=== PATIENT | female | born 1950 | race Caucasian/White ===

== ENCOUNTER 2017-07-15 22:23 | Inpatient (IN) | payer MEDICARE, BC ==
--- NOTE | 2017-07-15 23:21 | RAD ---
PORTABLE CHEST: 07/15/17 HISTORY: Hypertension. Lethargy. No comparison studies available. There is a large right pleural effusion. Possible small left effusion with basilar atelectasis and/or streaky infiltrate. A Mediport type catheter is in place with tip overlying the upper SVC. Mild card iomegaly. Thoracic scoliosis. Clips within the left axilla suggests left breast surgery. IMPRESSION: 1. Large right pleural effusion. 2. Small left effusion and streaky atelectasis and/or infiltrate in the left lung base. POS: [facility]
[2017-07-16 00:25] LABS: Clarity Clear (Clear)
[2017-07-16 00:26] LABS: ALT (SGPT) 30 U/L (8-55); AST (SGOT) 156 U/L (5-34); Albumin 1.8 g/dL (3.4-4.8); Alkaline Phosphatase 1050 U/L (40-150); Anion Gap 21 mmol/L (10-20); BUN (Urea Nitrogen) 38 mg/dL (9.8-20.1); Bilirubin, Total 13.2 mg/dL (0.2-1.2); Calc. Creatinine Clearance 0 mL/min (70-130); Carbon Dioxide 15 mmol/L (23-31); Chloride 100 mmol/L (98-107); Estimated GFR-MDRD 21; Globulin 2.1 g/dL (2.4-3.5); Glucose 86 mg/dL (80-115); Potassium 3.2 mmol/L (3.5-5.1); Protein, Total 3.9 g/dL (6.0-8.3); Sodium 133 mmol/L (136-145)
[2017-07-16 00:26] LABS: Specific Gravity, Urine 1.021 (1.002-1.036)
[2017-07-16 00:27] LABS: Bilirubin Unable to Interpret (Negative); Blood, Urine Unable to Interpret (Negative); Glucose, Urine (Dipstick) Unable to Interpret mg/dL (Negative); Leukocyte Unable to Interpret (Negative); Nitrite Unable to Interpret (Negative); Protein, Urine (Dipstick) Unable to Interpret mg/dL (Neg-Trace); Urobilinogen UNABLE TO INTERPRET mg/dL (0.2-1.0)
[2017-07-16 00:28] LABS: pH, Urine 5.1 (5.0-9.0)
[2017-07-16 00:37] LABS: RBC/HPF 0-3 HPF (0-3)
[2017-07-16 00:39] LABS: Bacteria/HPF Rare-Few HPF (None Seen)
[2017-07-16 00:40] LABS: Crystals/HPF 2+ AMORPH URATES HPF (Negative); Hyaline Casts/LPF 0-3 HYALINE CAST LPF (0-3 Hyaline); Manual Microscopic Reviewed? No Path Casts Seen
[2017-07-16 00:59] LABS: Band 6 % (5-11); Burr Cells MODERATE= 6-15 cells (100X) (0-1/hpf); Hemoglobin 12.3 g/dL (12.0-16.0); Lymphocytes 2 % (21-51); MDiff Complete? YES; Mean Corpuscular HGB CONC 32.5 g/dL (32.0-36.0); Mean Corpuscular Hemoglobin 33.9 pg (27.0-31.0); Mean Platelet Volume 11.8 fL (7.4-10.4); Monocytes 6 % (0-10); Neutrophil 86 % (42-75); PLT Morphology Comment Appears Decreased; Platelet Count 51 thou/uL (130-400); RBC Distribution Width 22.3 % (11.5-14.5); Red Blood Cell (RBC) Count 3.63 mill/uL (4.20-5.40); White Blood Cell (WBC) Count 21.5 thou/uL (4.8-10.8)
[2017-07-16 01:38] LABS: Phosphorus 6.3 mg/dL (2.3-4.7)
[2017-07-16] MEDS ORDERED: Meropenem 1 GM in Sterile Water 20 ML SLOW IVP SCH (02:00)
[2017-07-16] MEDS ORDERED: Meropenem 1 GM in Sodium Chloride 0.9% 100 ML IVPB SCH (02:00)
[2017-07-16] MEDS ORDERED: Sodium Chloride 0.9% 1,000 ML IV SCH ×2 (03:40→16:45)
[2017-07-16] MEDS ORDERED: Magnesium 2 GM/NS 0.9% 100 ML 2 GM in Premix Bag 1 BAG IVPB SCH (04:00)
[2017-07-16] MEDS ORDERED: Albumin 25% 25 GM/100 ML BOT IVPB SCH (04:00)
[2017-07-16 04:33] LABS: Anion Gap 19 mmol/L (10-20); BUN (Urea Nitrogen) 40 mg/dL (9.8-20.1); Calc. Creatinine Clearance 0 mL/min (70-130); Calcium 6.8 mg/dL (7.8-10.44); Carbon Dioxide 19 mmol/L (23-31); Chloride 98 mmol/L (98-107); Estimated GFR-MDRD 18; Glucose 88 mg/dL (80-115); Potassium 3.5 mmol/L (3.5-5.1); Sodium 132 mmol/L (136-145)
[2017-07-16 04:36] LABS: Lactic Acid 5.2 mmol/L (0.5-2.2)
[2017-07-16] MEDS ORDERED: Calcium Carbonate 500 MG ChewTAB PO PRN (04:40)
[2017-07-16] MEDS ORDERED: Ondansetron HCl/PF 4 MG/2 ML Vial IVP PRN (04:40)
[2017-07-16] MEDS ORDERED: Ondansetron ODT 4 MG TAB PO PRN (04:40)
[2017-07-16] MEDS ORDERED: Senokot 8.6 MG TAB PO PRN (04:40)
[2017-07-16] MEDS ORDERED: Polyethylene Glycol 3350 17 GM Packet PO PRN (04:42)
[2017-07-16] MEDS ORDERED: Eucerin (Mineral Oil/Petrolatum,White) 30 gm Jar TOP PRN (04:42)
[2017-07-16 05:09] VITALS: BMI 27.3
[2017-07-16] MEDS: Sodium Chloride 0.9% 1,000 ML IV SCH ×3 (05:30→20:45)
--- NOTE | 2017-07-16 06:12 | HP ---
DATE OF ADMISSION: 07/16/2017 PRIMARY CARE PHYSICIAN: None. PRIMARY ONCOLOGIST: Dr. Kojo Fabian at [facility]. CHIEF COMPLAINT: Generalized weakness with low blood pressure. HISTORY OF PRESENT ILLNESS: Patient is a 66-year-old female with metastatic ovarian cancer who prese nted to the emergency room with above complaints. The patient completed Adriamycin recently. She de veloped anemia and thrombocytopenia requiring transfusion of both platelets and blood. She was hospi talized at [facility] 2-1/2 weeks ago. Two days ago, patient was started on olaparib (Lynparza). Rec ently, the patient has been not eating well. She is getting more weaker. The family also noticed he r blood pressure in 60s along with lethargy for which she was brought to the emergency room. There w as no fever or chills reported. She has some cough along with shortness of breath. The cough was pr oductive of mild clear whitish phlegm. There was no nausea, vomiting, diarrhea, constipation reporte d. She also recently had hemorrhagic cystitis that has resolved. PAST MEDICAL HISTORY: 1. Ovarian cancer with metastasis to the liver. 2. Crohn's disease. 3. Ileostomy. PAST SURGICAL HISTORY: 1. Mastectomy with lymph node removal on the left. 2. Hysterectomy. 3. Oophorectomy. 4. Ovarian mass removal. ALLERGIES: The patient is allergic to KEFLEX and IODINE. CURRENT HOME MEDICATIONS: [place] as needed, Imodium as needed, Lynparza 200 mg b.i.d. SOCIAL HISTORY: Patient currently lives at home with her family. Denies any current use of alcohol, tobacco or drug use. She is full code, makes her own decisions with the help of her family. FAMILY HISTORY: Negative for premature coronary artery disease. REVIEW OF SYSTEMS: The following complete review of systems was negative, unless otherwise mentioned in the HPI or below: Constitutional: Weight loss or gain, ability to conduct usual activities. Skin: Rash, itching. Eyes: Double vision, pain. ENT/Mouth: Nose bleeding, neck stiffness, pain, tenderness. Cardiovascular: Palpitations, dyspnea on exertion, orthopnea. Respiratory: Shortness of breath, wheezing, cough, hemoptysis, fever or night sweats. Gastrointestinal: Poor appetite, abdominal pain, heartburn, nausea, vomiting, constipation, or diarr hea. Genitourinary: Urgency, frequency, dysuria, nocturia. Musculoskeletal: Pain, swelling. Neurologic/Psychiatric: Anxiety, depression. Allergy/Immunologic: Skin rash, bleeding tendency. PHYSICAL EXAMINATION: VITAL SIGNS: In the emergency room showed temperature 97.4, respiration of 18, pulse rate of 99, blo od pressure of 61/40 in the emergency room. GENERAL: A 66-year-old female in no apparent distress, ill appearing, feels generally weak and somno lent. HEENT: Head is atraumatic, normocephalic. Sclerae are anicteric. Dry mucous membranes. No oral le dm. NECK: Supple, no JVD, no carotid bruit. LUNGS: Showed diminished air entry at the right mid and right lower half of the lung with scattered rales. No wheezing or rhonchi noted. LUNGS: Symmetrical. HEART: S1, S2 present. Regular rate and rhythm. No rubs or gallops appreciated. ABDOMEN: Soft, nontender, bowel sounds present, ileostomy noted. EXTREMITIES: 3+ edema in bilateral lower extremities, which is chronic per daughter at the bedside. SKIN: Warm and dry. LYMPH NODES: No palpable lymph nodes in the neck. PERIPHERAL VASCULAR: Radial pulses palpable bilaterally. MUSCULOSKELETAL: No joint swelling or tenderness. NEUROLOGIC: Grossly nonfocal, moves all four extremities. PSYCHIATRY: Alert, awake, oriented x3. LABORATORY DATA AND X-RAY FINDINGS: CBC showed WBC of 21.5, hemoglobin 12.3, hematocrit 37.9, platel et of 51 with 86% neutrophils. Chemistries showed sodium 133, potassium 3.2, chloride 100, bicarbona te 15, anion gap 21, BUN 38, creatinine 2.34, calcium of 6.0 with albumin of 1.8, total protein 3.9, total bilirubin 13.2. Cortisol level was 14.9. Lipase was normal. Magnesium 1.0. Urinalysis showe d 4-6 WBC with squamous epithelial cells. Influenza testing was negative. Chest x-ray by my review showed large right-sided pleural effusion with small left effusion with questionable infiltrate at th e left lung base. Telemetry monitoring by my review showed sinus rhythm. IMPRESSION: 1. Sepsis with acute organ dysfunction, suspected secondary to pneumonia, questionable pneumococcal. 2. Hypotension, multifactorial. 3. Severe protein calorie malnutrition. 4. Electrolyte abnormalities. Patient has hyponatremia, hypokalemia and hypomagnesemia. 5. Abnormal liver function tests secondary to liver metastasis. 6. Acute kidney injury. Baseline creatinine is unavailable. 7. Metabolic acidosis/lactic acidosis. 8. History of Crohn's disease. PLAN: The patient will be monitored in the IMCU. We will continue IV fluids with empiric antibiotic s and albumin. We will repeat lactic acid in a.m. We will continue vancomycin and meropenem. Blood cultures have been sent. Vital signs q.4 hours. We will consult Oncology and Pulmonology. Plan of care was discussed with the patient and the daughter at the bedside. They stated alhajii andrew.
[2017-07-16 07:16] VITALS: BP 51/29
[2017-07-16] MEDS ORDERED: Norepinephrine 8 MG/0.9% NS 250 ML ONE (08:20)
[2017-07-16] MEDS ORDERED: Docusate 100 MG CAP PO SCH (09:00)
--- NOTE | 2017-07-16 09:09 | CON ---
DATE OF CONSULTATION: 07/16/2017 CONSULTING PHYSICIAN: Declan Vargas M.D. REASON FOR CONSULTATION: Low blood pressure and abnormal chest x-ray. HISTORY OF PRESENT ILLNESS: History is obtained by speaking with the patient, her daughter, and by reviewing the chart records. I was not informed by the Hospitalist group about this consultation. The patient presented last night with a low blood pressure, which has been as low as 59/31. To the point when I saw her, this had not been addressed by any other means except fluid resuscitation. The patient says her blood pressures normally in the systolic 80s to 90s. She has also been experiencing shortness of breath over the last 3 weeks to the point where she has not been able to lay flat. An x-ray obtained in the emergency room showed a massive right-sided pleural effusion. To the family's knowledge, this has not been a problem in the past. She has metastatic ovarian cancer, which is being treated with salvage chemotherapy. Complications of the cancer include liver metastasis, hemorrhagic cystitis and chronic thrombocytopenia. PAST MEDICAL HISTORY: 1. Ovarian cancer with metastasis to the liver. 2. Crohn's disease, requiring colostomy in the past. 3. Mastectomy with lymph node removal on the left side. 4. Hysterectomy. 5. Oophorectomy. 6. Ovarian mass removal. ALLERGIES: KEFLEX and IODINE. MEDICATIONS PRIOR TO ADMISSION: [place], Imodium, Lynparza 200 mg b.i.d. SOCIAL HISTORY: She is a nonsmoker, does not consume alcohol, does not use illicit drugs. She lives at home with her family. She seeks all of her mental care in [place]. FAMILY MEDICAL HISTORY: Negative for cardiopulmonary disease. REVIEW OF SYSTEMS: She has lost considerable amount of weight. She has orthopnea. She has paroxysmal nocturnal dyspnea. She is generally able to do most of her activities of daily living. A 12-point review of systems is otherwise negative. PHYSICAL EXAMINATION: VITAL SIGNS: Temperature 97.8, pulse 92, blood pressure 59/31, O2 sat 96%, respiratory rate 21. GENERAL: The patient is alert, talkative, does not appear to be in any profound distress. HEENT: Pupils are reactive. Sclerae are anicteric. Oropharynx is clear. She has alopecia. NECK: She has a tunneled catheter coming up into her IJ. She has no thyromegaly, no JVD, no palpable adenopathy. LUNGS: She has grossly diminished breath sounds in the right base with dullness to percussion. She has clear breath sounds on the left. CARDIAC: S1, S2 regular, without murmur. ABDOMEN: Mildly distended, but no obvious ascites is noted. She has no ecchymoses. She has a colostomy present in the left upper quadrant. EXTREMITIES: Show pitting edema from the thighs downward bilaterally. She has very weak distal pulses over her feet. NEUROLOGIC: Grossly intact throughout. SKIN: Shows no obvious rashes, bruising or jaundice. LABORATORY DATA: White blood cell count 21.5, hematocrit 37.9, platelet count 51,000. Sodium 132, potassium 3.5, chloride 90, CO2 of 19, BUN 40, creatinine 2.7, glucose is 88. Cortisol level is 14.9. IMAGING: Chest x-ray shows a massive right pleural effusion. There is a tunneled MediPort catheter in place. She has orin beneath her left axillary region. Heart size is difficult to discern secondary to the massive pleural effusion. ASSESSMENT: 1. Massive left pleural effusion, likely metastatic ovarian cancer. 2. Hypotension, which could be secondary to volume depletion or septic shock. 3. Relative adrenal insufficiency. 4. Metastatic ovarian cancer. 5. Thrombocytopenia. PLAN: 1. The patient first needs to be resuscitated with fluids and vasopressors. 2. Agree with antibiotics including the vancomycin and meropenem. 3. She will need a diagnostic therapeutic right-sided thoracentesis. 4. We would empirically start her on Solu-Cortef given her relatively low cortisol level for the degree of hypotension. 5. Discussed risk of thoracentesis, the patient is agreeable to proceed. 70 min. of time was pent performing this consultation. Of the 70 min., greater than 50% of time was spent on counseling and coordination of care MTDD
[2017-07-16] MEDS: Famotidine 20 MG TAB PO SCH (09:29)
--- NOTE | 2017-07-16 10:36 | PDOC.THORA ---
Thoracentesis Procedure Note - Procedure Date: 07/16/17 Time: 10:34 - PreProcedure Diagnosis: Right pleural effusion - PostProcedure Diagnosis: Right Pleural effusion - Anesthesia Anesthesia: 1% Lidocaine without epinephrine - Description Patient tolerated procedure: well Procedure in Details: Consent obtained after risks explained. Ultrasound use to joselin effusion (right 5th-6th interspace posteriorly) Chlorohexadine prep. Sterile drape. Local anesthetic [id number] catheter inserted into pleural space and 1.6L of brown pleural fluid removed.
[2017-07-16 11:17] LABS: Fluid, Triglycerides 84 mg/dL (Not Available); Pleural Fluid, Amylase Less than 30 U/L (Not Available); Pleural Fluid, Glucose 85 mg/dL; Pleural Fluid, LDH 571 U/L (Not Available); Pleural Fluid, Protein 2.5 g/dL
[2017-07-16 12:41] LABS: WBC/NonHematic-Auto 207 /cumm
[2017-07-16 12:42] LABS: BF Color Brown; Body Fluid Source THORACENTESIS FLD; Clarity Cloudy/Turbid (Clear); RBC Background Count 0.002; RBC Count-Automated 15000 /cumm; Tube # 3
--- NOTE | 2017-07-16 13:19 | RAD ---
PORTABLE CHEST 1 VIEW: Date: 07/16/17 Time: 1152 hours HISTORY: Pleural effusion. FINDINGS/IMPRESSION: Comparison made with exam from previous night. Right-sided central venous catheter remains in place. There is mild reduction in the size of the righ t pleural effusion since the previous study. No pneumothorax is seen. POS: [facility]
[2017-07-16] MEDS: Albumin 25% 25 GM/100 ML BOT IVPB SCH ×2 (13:20→21:40)
[2017-07-16] MEDS: Hydrocortisone Sod Succ/PF 100 mg/2 ml Vial IVP SCH ×2 (13:20→17:23)
[2017-07-16 13:35] LABS: BF Segmented Neutrophils 16 %; Cell Count Non Hematic 84 %
[2017-07-16] MEDS: Norepinephrine 8 MG/0.9% NS 250 ML IVPB SCH ×2 (14:21→18:54)
[2017-07-16] MEDS: Meropenem 1 GM in Syringe 20 ML SLOW IVP SCH (14:59)
--- NOTE | 2017-07-16 16:24 | CON ---
DATE OF CONSULTATION: 07/16/2017 HISTORY OF PRESENT ILLNESS: This is a 66-year-old female, who had a modified radical maste ctomy for carcinoma of the left breast in 1994. At that time, she was given chemotherapy, I believe with FAC, under my care. In 2010, she developed ovarian cancer and has received her care in [place]. According to the patient, she was given chemotherapy in the beginning followed by an ovarian cancer surgery. Apparently, there was no gross disease. I am not sure if there was any microscopic diseas e at that time or not. Since then, the patient had several recurrences and has received, it seems, 4 or 5 lines chemotherapy. Her BRCA tests were negative. She was started on olaparib 200 mg p.o. twi ce daily. She has taken it only for 2 or 3 days. The patient has gradually been declining at least for a month. She has been using a walker at home. Her appetite has been very poor. She was hospita lized with hypotension. Blood pressure was around 50 systolic. She was found to have leukocytosis w ith white cell count of 21,500. Lactic acid was also elevated. The patient has been resuscitated wi th fluids and is being treated with hydrocortisone 100 mg IV q.6 hours, meropenem 1 gram and vancomyc in. At the present time, she is fully conversational and feeling better. She admits of extremely po or appetite and fatigue. She denies pain. OUTPATIENT MEDICATIONS: Olaparib, [place], and Imodium. PAST MEDICAL HISTORY: Positive for ovarian cancer and breast cancer. She also has a history of Croh n's disease and had ileostomy. PAST SURGICAL HISTORY: Included a modified radical mastectomy on the left side, hysterectomy, and oo phorectomy. DRUGS WITH ADVERSE EFFECT: KEFLEX and IODINE. PERSONAL, FAMILY AND SOCIAL HISTORY: The patient denies alcohol or tobacco abuse. REVIEW OF SYSTEMS: Ten point system review was performed and was negative except for findings as men tioned in history of present illness. Denies headache, diplopia, and unequal extremity weakness. PHYSICAL EXAMINATION: GENERAL: The patient appears appropriate for her age and is alert and oriented. VITAL SIGNS: Height 5 feet 4 inches, weight 159 pounds, blood pressure 84/43, temperature 97.9, hear t rate 116. HEENT: Unremarkable. LYMPHATICS: There is no peripheral lymphadenopathy. CHEST: Clear to percussion and auscultation. HEART: S1, S2. ABDOMEN: Soft and scaphoid. Bowel sounds normal. No tenderness. EXTREMITIES: Bilateral lower extremity edema. The skin of the lower extremities is also very erythe matous. LABORATORY AND X-RAY FINDINGS: CBC on 07/15/2017 showed WBC of 21.5 with hemoglobin of 12.3 and plat elet count of 51,000. Differential shows 86 neutrophils and 6 bands. Chemistry profile shows sodium 132, potassium 3.5, BUN 40, creatinine 2.7, total bilirubin 13.2, AST 156, alkaline phosphatase 1050 , albumin 1.8, globulin 2.1. Chest x-ray shows a right pleural effusion. ASSESSMENT AND RECOMMENDATIONS: This patient seems to have end-stage ovarian cancer. Current proble ms could be a combination of dehydration, malnutrition and possibly sepsis. I do not have her previo us baseline bilirubin, but bilirubin of 13 is quite bothersome. The patient wanted to be restarted o n olaparib in spite of thrombocytopenia. I think it is probably okay with her platelet count. Her C BC will have to be monitored closely and olaparib discontinued if platelet count goes down to below 3 5,000. Thanks very much for allowing me to participate in this patient's care.
[2017-07-16] MEDS: HYDROcodone/Acetaminophen 5/325 mg Tablet PO PRN ×2 (17:23→22:05)
[2017-07-16] MEDS: OLAPARIB PO SCH (21:39)
[2017-07-17] MEDS: Norepinephrine 8 MG/0.9% NS 250 ML IVPB SCH ×5 (00:23→17:38)
[2017-07-17] MEDS: Hydrocortisone Sod Succ/PF 100 mg/2 ml Vial IVP SCH ×4 (00:23→17:38)
[2017-07-17] MEDS: Vancomycin HCl 750 MG in Sodium Chloride 0.9% 250 ML 250 ML IVPB SCH (02:15)
[2017-07-17] MEDS: Meropenem 1 GM in Syringe 20 ML SLOW IVP SCH ×2 (02:15→12:50)
[2017-07-17] MEDS: Sodium Chloride 0.9% 1,000 ML IV SCH ×3 (05:15→21:30)
[2017-07-17] MEDS: Albumin 25% 25 GM/100 ML BOT IVPB SCH ×3 (05:16→21:41)
[2017-07-17 05:53] LABS: Lactic Acid 3.9 mmol/L (0.5-2.2)
[2017-07-17 06:11] LABS: ALT (SGPT) 31 U/L (8-55); AST (SGOT) 177 U/L (5-34); Albumin 2.8 g/dL (3.4-4.8); Alkaline Phosphatase 1009 U/L (40-150); Anion Gap 20 mmol/L (10-20); BUN (Urea Nitrogen) 42 mg/dL (9.8-20.1); Bilirubin, Total 14.4 mg/dL (0.2-1.2); Calc. Creatinine Clearance 23 mL/min (70-130); Calcium 6.7 mg/dL (7.8-10.44); Carbon Dioxide 15 mmol/L (23-31); Chloride 103 mmol/L (98-107); Estimated GFR-MDRD 17; Globulin 1.8 g/dL (2.4-3.5); Glucose 109 mg/dL (80-115); Magnesium 1.6 mg/dL (1.6-2.6); Potassium 3.3 mmol/L (3.5-5.1); Protein, Total 4.6 g/dL (6.0-8.3); Sodium 135 mmol/L (136-145)
[2017-07-17 06:28] LABS: Band 1 % (5-11); Hemoglobin 12.6 g/dL (12.0-16.0); Lymphocytes 1 % (21-51); MDiff Complete? YES; Mean Corpuscular HGB CONC 31.8 g/dL (32.0-36.0); Mean Corpuscular Hemoglobin 33.2 pg (27.0-31.0); Monocytes 9 % (0-10); Neutrophil 89 % (42-75); PLT Morphology Comment Appears Decreased; Platelet Count 76 thou/uL (130-400); RBC Distribution Width 22.3 % (11.5-14.5); Red Blood Cell (RBC) Count 3.79 mill/uL (4.20-5.40); White Blood Cell (WBC) Count 26.7 thou/uL (4.8-10.8)
[2017-07-17] MEDS: Famotidine 20 MG TAB PO SCH (08:35)
[2017-07-17] MEDS: OLAPARIB PO SCH ×2 (08:38→21:42)
--- NOTE | 2017-07-17 08:41 | RAD ---
PORTABLE UPRIGHT FRONTAL CHEST RADIOGRAPH: Date: 07/17/17 COMPARISON: 07/16/17. HISTORY: Respiratory distress. FINDINGS: Right-sided Port-A-Cath present. There has been interval worsening in right perihilar aeration with n ew/worsening right perihilar and right suprahilar air space disease. Increased density within the inf erior 2/3 of the left hemithorax suggests enlarging pleural effusion and/or worsening air space disea se. Patchy air space disease and probable small pleural fluid noted in left lung base, slightly worsened as well. Postoperative clips are noted in left axillary region. IMPRESSION: Pleural and parenchymal opacity noted in both lung bases, as well as the right perihilar region, wors ened since the prior exam. Findings may signify worsening edema. Superimposed infection or aspiration cannot be excluded. POS: [facility]
[2017-07-17] MEDS ORDERED: Prevnar 13-Val Conj/PF 0.5 ML SYRINGE IM ONE (09:00)
[2017-07-17] MEDS: HYDROcodone/Acetaminophen 5/325 mg Tablet PO PRN (09:24)
[2017-07-17] MEDS: HYDROcodone/Acetaminophen 7.5/325 mg Tablet PO PRN ×2 (12:51→21:41)
--- NOTE | 2017-07-17 14:12 | PDOC.PN ---
- Subjective Encounter Start Date: 07/17/17 Encounter Start Time: 14:00 Subjective: f/u for sepsis and suspected PNA in context of end-stage Ovarian CA. -: Tx with Meropenem and Vancomycin and s/p R thoracentesis with all -: cx neg to date. - Objective Resuscitation Status: Resuscitation Status DNR:Do Not Resuscitate MAR Reviewed: Yes Vital Signs & Weight: Vital Signs (12 hours) Temp Pulse Resp Pulse Ox 07/17/17 13:00 97.7 F 07/17/17 08:00 97.7 F 108 H 22 H 90 L 07/17/17 07:00 97.7 F 07/17/17 06:36 92 L 07/17/17 04:00 97.8 F Weight Weight 162 lb 0.636 oz Most Recent Monitor Data Heart Rate from ECG 104 NIBP 113/65 NIBP BP-Mean 78 Respiration from ECG 26 SpO2 92 I&O: 07/16/17 07/17/17 07/18/17 06:59 06:59 06:59 Intake Total 550 5696 300 Output Total 0 865 255 Balance 550 4831 45 Result Diagrams: 07/17/17 05:38 07/17/17 05:38 Additional Labs: Microbiology 07/15/17 23:46 Urine Straight Catheter Urine Culture - Final NO GROWTH AT 36 HOURS 07/15/17 23:46 Nasal swab Influenza Types A,B Direct EIA - Final 07/16/17 10:20 Pleural fluid Body Fluid Culture - Preliminary 07/15/17 23:50 Venous blood - Right Hand Blood Culture - Preliminary Specimen has been received and culture in progress. No Growth to date. 07/15/17 23:45 Port - Right external jugular vein Blood Culture - Preliminary Specimen has been received and culture in progress. No Growth to date. Laboratory Tests 07/15/17 07/16/17 07/16/17 23:43 00:00 03:42 WBC 21.5 H Plt Count 51 L Neutrophils % (Manual) 86 H Sodium 132 L Potassium 3.5 Creatinine 2.70 H Lactic Acid Phosphorus 6.3 H Magnesium 1.0 L Total Bilirubin AST ALT Alkaline Phosphatase Cortisol 07/16/17 07/16/17 07/17/17 03:42 03:42 05:38 WBC Plt Count Neutrophils % (Manual) Sodium Potassium Creatinine Lactic Acid 5.2 H* Phosphorus Magnesium 1.6 Total Bilirubin 14.4 H AST 177 H ALT 31 Alkaline Phosphatase 1009 H Cortisol 14.90 18 07/17/17 05:38 05:38 WBC Plt Count 76 L Neutrophils % (Manual) 89 H Sodium Potassium Creatinine Lactic Acid 3.9 H Phosphorus Magnesium Total Bilirubin AST ALT Alkaline Phosphatase Cortisol Radiology Reviewed by me: Yes (PCXR - R effusion, bibasilar opacities) EKG Reviewed by me: Yes (Tele - Sinus tachycardia) Phys Exam - Physical Examination ill-appearing, awake and responds to questions HEENT: PERRLA, oral pharynx no lesions Neck: no JVD, supple diminished in bibasilar segments tachycardic + ileostomy Gastrointestinal: soft, non-tender, no distention, positive bowel sounds Musculoskeletal: pulses present, edema present Neurological: normal sensation, moves all 4 limbs Psychiatric: A&O x 3 Skin: normal turgor, cap refill <2 seconds Dx/Plan (1) Sepsis Code(s): A41.9 - SEPSIS, UNSPECIFIED ORGANISM Status: Acute Comment: suspected pulmonary source and PNA likely gm + cocci, continue Meropenem and Vancomycin, continue sepsis protocol (2) Pneumonia Code(s): J18.9 - PNEUMONIA, UNSPECIFIED ORGANISM Status: Acute Qualifiers: Laterality: bilateral Comment: suspected given CXR findings, continue O2 support, Meropenem and Vancomycin (3) Hypotension Status: Acute Comment: Secondary to Sepsis, continue Levophed gtt, continue IVF's (4) ANTWON (acute kidney injury) Code(s): N17.9 - ACUTE KIDNEY FAILURE, UNSPECIFIED Status: Acute Comment: Persists likely due to sepsis, continue IVF's, avoid nephrotoxic meds and contrast media (5) CKD (chronic kidney disease) stage 3, GFR 30-59 ml/min Code(s): N18.3 - CHRONIC KIDNEY DISEASE, STAGE 3 (MODERATE) Status: Chronic (6) Ovarian carcinoma Code(s): C56.9 - MALIGNANT NEOPLASM OF UNSPECIFIED OVARY Status: Chronic Comment: Current chemotherapy, appears to be end-stage process (7) Transaminitis Code(s): R74.0 - NONSPEC ELEV OF LEVELS OF TRANSAMNS & LACTIC ACID DEHYDRGNSE Status: Acute Comment: Likely baseline levels in context of ovarian ca (8) Hyponatremia Code(s): E87.1 - HYPO-OSMOLALITY AND HYPONATREMIA Status: Acute Comment: Multifactorial, serial monitoring (9) Hypokalemia Code(s): E87.6 - HYPOKALEMIA Status: Acute Comment: KCL supplementation, repeat K+ level in am - Plan plan discussed w/ family, continue antibiotics, PT/OT, child welfare social worker, respiratory therapy, DVT proph w/SCDs continue critical support -: Levophed titrated to keep SBP>80 -: Continue IVF's -: Continue Meropenem and Vancomycin -: Continue Albumin and Hydrocortisone * AM lab: CMP, CBC * Code Status: DNR
--- NOTE | 2017-07-17 16:42 | PRG ---
DATE OF SERVICE: 07/17/2017 Thirty-five minutes critical care time. SUBJECTIVE: The patient remains on Levophed drip at 30 mcg per hour. She says she is breathing a li ttle better today. PHYSICAL EXAMINATION: VITAL SIGNS: Temperature is 97.8, pulse 109, blood pressure 90/52 on the vasopressor, currently rece iving normal saline at 125 mL per hour. A 24-hour intake is 5696, output 865. HEENT: Unremarkable except for alopecia. NECK: No JVD. LUNGS: Diminished breath sounds right base. CARDIOVASCULAR: S1, S2, slightly tachycardic. ABDOMEN: Distended. Ostomy is with slight bloody output. EXTREMITIES: Edematous throughout. LABORATORY DATA: Thoracentesis fluid was exudative. White blood cell count is 26.7, hematocrit 39.6 , platelet count 76. Sodium 135, potassium 3.3, chloride 103, CO2 of 15, BUN 42, creatinine 2.7, glu cose 109. AST 177, ALT 31, alkaline phosphatase 1009. IMPRESSION: 1. We are dealing with end-stage ovarian cancer with a malignant pleural effusion, sepsis syndrome a nd generalized failure to thrive. 2. She is also developing acute renal failure and has markedly decreased urine output over the last 24 hours. RECOMMENDATIONS: I personally believe that we are fighting a losing chavez here. I have tried to di scuss code status with the patient. She says she needed to talk to her daughter about this. I think she also was highly reliant on the opinion of her oncologist in [place]. It may be worthwhile to ge t her transferred down there to see if they have anything else to offer her. In the meantime, I woul d suggest asking Nephrology to see her as she may be approaching the point where she needs hemodialys is, she wants to continue with current aggressive care. This patient's prognosis is extremely poor a nd again I do not see much we can add to make this better for her.
[2017-07-18] MEDS: Norepinephrine 8 MG/0.9% NS 250 ML IVPB SCH (00:42)
[2017-07-18] MEDS: Hydrocortisone Sod Succ/PF 100 mg/2 ml Vial IVP SCH ×3 (00:42→13:52)
[2017-07-18] MEDS: Meropenem 500 MG, Admixture Fee 1 EACH in Sterile Water 10 ML SLOW IVP SCH ×2 (00:42→13:52)
[2017-07-18 01:54] LABS: Vancomycin, Trough 13.9 ug/mL
[2017-07-18] MEDS: Vancomycin HCl 750 MG in Sodium Chloride 0.9% 250 ML 250 ML IVPB SCH (02:15)
[2017-07-18 05:00] LABS: ALT (SGPT) 45 U/L (8-55); AST (SGOT) 280 U/L (5-34); Albumin 3.5 g/dL (3.4-4.8); Alkaline Phosphatase 908 U/L (40-150); Anion Gap 24 mmol/L (10-20); BUN (Urea Nitrogen) 48 mg/dL (9.8-20.1); Bilirubin, Total 14.5 mg/dL (0.2-1.2); Calc. Creatinine Clearance 23 mL/min (70-130); Calcium 6.9 mg/dL (7.8-10.44); Carbon Dioxide 12 mmol/L (23-31); Chloride 106 mmol/L (98-107); Estimated GFR-MDRD 17; Globulin 1.4 g/dL (2.4-3.5); Glucose 107 mg/dL (80-115); Potassium 3.5 mmol/L (3.5-5.1); Protein, Total 4.9 g/dL (6.0-8.3); Sodium 138 mmol/L (136-145)
[2017-07-18] MEDS: Sodium Chloride 0.9% 1,000 ML IV SCH ×2 (05:39→16:46)
[2017-07-18] MEDS: Albumin 25% 25 GM/100 ML BOT IVPB SCH ×2 (05:39→16:46)
--- NOTE | 2017-07-18 06:17 | PRG ---
DATE OF SERVICE: 07/18/2017 The patient continues to get worse despite fairly aggressive care. Yesterday, she was made DNR. I t hink this is a joint decision between the patient's family. PHYSICAL EXAMINATION: VITAL SIGNS: Temperature is 98.5, pulse 98, blood pressure 83/50. She is currently on Levophed drip 24 mcg per minute. Total intake for 24 hours 2805, output 610. She is having hematuria and blood t hrough her colostomy. NEUROLOGIC: She is confused. HEENT: Remarkable for alopecia. NECK: No JVD. LUNGS: Diminished breath sounds both bases. CARDIOVASCULAR: S1, S2, slightly tachycardic. ABDOMEN: Soft, distended. EXTREMITIES: Edematous. LABORATORY DATA: CBC is pending. Sodium 130, potassium 3.5, chloride 106, CO2 12, BUN 48, creatinin e 2.8, glucose 107. ASSESSMENT: 1. Metastatic ovarian cancer. 2. Hematochezia. 3. Hematuria. RECOMMENDATIONS: I think the patient has no hope for functional recovery and is near . I would recommend palliative care consultation and discontinuing any aggressive care.
[2017-07-18 06:39] LABS: Anisocytosis SLIGHT = 6-15 cells (100X) (0-5/hpf); Band 5 % (5-11); Burr Cells MODERATE= 6-15 cells (100X) (0-1/hpf); Hemoglobin 11.2 g/dL (12.0-16.0); Lymphocytes 3 % (21-51); MDiff Complete? YES; Macrocytosis SLIGHT = 6-15 cells (100X) (0-5/hpf); Mean Corpuscular HGB CONC 31.6 g/dL (32.0-36.0); Mean Corpuscular Hemoglobin 33.2 pg (27.0-31.0); Mean Platelet Volume 11.1 fL (7.4-10.4); Metamyelocyte 1 % (0-0); Monocytes 4 % (0-10); Neutrophil 87 % (42-75); PLT Morphology Comment Appears Decreased; Platelet Count 58 thou/uL (130-400); RBC Distribution Width 22.2 % (11.5-14.5); Red Blood Cell (RBC) Count 3.38 mill/uL (4.20-5.40); White Blood Cell (WBC) Count 27.2 thou/uL (4.8-10.8)
--- NOTE | 2017-07-18 10:03 | PDOC.PN ---
- Subjective Encounter Start Date: 07/18/17 Encounter Start Time: 08:40 Subjective: Called by nursing for ostomy site bleeding beginning overnight. Bright -: red blood noted in ostomy bag. No anticoagulation or ASA. - Objective Resuscitation Status: Resuscitation Status DNR:Do Not Resuscitate MAR Reviewed: Yes Vital Signs & Weight: Vital Signs (12 hours) Temp Pulse Ox 07/18/17 08:07 93 L 07/18/17 04:00 98.5 F 07/18/17 00:00 99.1 F Weight Weight 169 lb 5.04 oz Most Recent Monitor Data Heart Rate from ECG 98 NIBP 81/45 NIBP BP-Mean 59 Respiration from ECG 58 SpO2 93 I&O: 07/17/17 07/18/17 07/19/17 06:59 06:59 06:59 Intake Total 5696 5127 Output Total 865 770 Balance 4831 4357 Result Diagrams: 07/18/17 04:38 07/18/17 04:38 Additional Labs: Microbiology 07/16/17 10:20 Pleural fluid Acid Fast Bacilli Smear - Final 07/15/17 23:46 Urine Straight Catheter Urine Culture - Final NO GROWTH AT 36 HOURS 07/15/17 23:46 Nasal swab Influenza Types A,B Direct EIA - Final 07/16/17 10:20 Pleural fluid Body Fluid Culture - Preliminary 07/15/17 23:50 Venous blood - Right Hand Blood Culture - Preliminary Specimen has been received and culture in progress. No Growth to date. 07/15/17 23:45 Port - Right external jugular vein Blood Culture - Preliminary Specimen has been received and culture in progress. No Growth to date. Laboratory Tests 07/15/17 07/16/17 07/16/17 23:43 00:00 03:42 WBC 21.5 H Hgb Plt Count 51 L Neutrophils % (Manual) 86 H Sodium 132 L Potassium 3.5 Creatinine 2.70 H Lactic Acid Phosphorus 6.3 H Magnesium 1.0 L Total Bilirubin AST ALT Alkaline Phosphatase Cortisol 07/16/17 07/16/17 07/17/17 03:42 03:42 05:38 WBC Hgb Plt Count Neutrophils % (Manual) Sodium Potassium Creatinine 2.76 H Lactic Acid 5.2 H* Phosphorus Magnesium 1.6 Total Bilirubin 14.4 H AST 177 H ALT 31 Alkaline Phosphatase 1009 H Cortisol 14.90 07/17/17 07/17/1718 05:38 05:38 04:38 WBC 26.7 H Hgb 12.6 Plt Count 76 L Neutrophils % (Manual) 89 H Sodium Potassium Creatinine Lactic Acid 3.9 H Phosphorus Magnesium Total Bilirubin 14.5 H AST 280 H ALT 45 Alkaline Phosphatase 908 H Cortisol 07/18/17 04:38 WBC Hgb Plt Count Neutrophils % (Manual) 87 H Sodium Potassium Creatinine Lactic Acid Phosphorus Magnesium Total Bilirubin AST ALT Alkaline Phosphatase Cortisol EKG Reviewed by me: Yes (Tele - Sinus in 90's) Phys Exam - Physical Examination pale, ill-appearing +stomatitis HEENT: PERRLA Neck: no JVD, supple diminished bilat, +coarse sounds, labored Cardiovascular: RRR ostomy with active bleeding at skin level, viable ostomy Gastrointestinal: soft, no distention, positive bowel sounds Musculoskeletal: pulses present, edema present Neurological: normal sensation, moves all 4 limbs Skin: normal turgor, cap refill <2 seconds Deviation from normal: [place] with dark urine Dx/Plan (1) Anemia associated with acute blood loss Code(s): D62 - ACUTE POSTHEMORRHAGIC ANEMIA Status: Acute Comment: Stat H/H with platelets, consider PRBC's, secondary to #2 (2) Complication of ostomy Code(s): [id number] - Status: Acute Comment: Superficial skin bleeding at interface of skin and ostomy, sutures placed per Gen surgery and hemostasis obtained, surgicell placed and new ostomy dressing placed (3) Sepsis Code(s): A41.9 - SEPSIS, UNSPECIFIED ORGANISM Status: Acute Comment: suspected pulmonary source and PNA likely gm + cocci, continue Meropenem and Vancomycin, continue sepsis protocol (4) Pneumonia Code(s): J18.9 - PNEUMONIA, UNSPECIFIED ORGANISM Status: Acute Qualifiers: Laterality: bilateral Comment: suspected given CXR findings, continue O2 support, Meropenem and Vancomycin (5) Hypotension Status: Acute Comment: Secondary to Sepsis, continue Levophed gtt, continue IVF's (6) ANTWON (acute kidney injury) Code(s): N17.9 - ACUTE KIDNEY FAILURE, UNSPECIFIED Status: Acute Comment: Persists likely due to sepsis, continue IVF's, avoid nephrotoxic meds and contrast media (7) CKD (chronic kidney disease) stage 3, GFR 30-59 ml/min Code(s): N18.3 - CHRONIC KIDNEY DISEASE, STAGE 3 (MODERATE) Status: Chronic (8) Ovarian carcinoma Code(s): C56.9 - MALIGNANT NEOPLASM OF UNSPECIFIED OVARY Status: Chronic Comment: Current chemotherapy, appears to be end-stage process (9) Transaminitis Code(s): R74.0 - NONSPEC ELEV OF LEVELS OF TRANSAMNS & LACTIC ACID DEHYDRGNSE Status: Acute Comment: Likely baseline levels in context of ovarian ca (10) Hyponatremia Code(s): E87.1 - HYPO-OSMOLALITY AND HYPONATREMIA Status: Acute Comment: Multifactorial, serial monitoring (11) Hypokalemia Code(s): E87.6 - HYPOKALEMIA Status: Acute Comment: KCL supplementation, repeat K+ level in am - Plan plan discussed w/ family, continue antibiotics, social service worker, respiratory therapy, DVT proph w/SCDs Consulted Gen surgery for urgent suture placement of ostomy bleeding -: Local ostomy care -: Continue Vancomycin and Meropenem -: Morphine Sulfate 4mg IV q3h prn -: Palliative care and likely will proceed with Hospice at home * H/H with platelets now * Continue Levophed and IVF's Total Critical Care Time: 45min
--- NOTE | 2017-07-18 10:05 | OP ---
DATE OF PROCEDURE: 07/18/2017 PREOPERATIVE DIAGNOSES: 1. History of metastatic ovarian cancer. 2. Bleeding ileostomy. POSTOPERATIVE DIAGNOSES: 1. History of metastatic ovarian cancer. 2. Bleeding ileostomy. PROCEDURE PERFORMED: Oversew of bleeding at the ileostomy site. INDICATIONS FOR PROCEDURE: I was asked to evaluate Ms. Turner, 66-year-old with a history of metastati c ovarian carcinoma and progressive ileostomy. The patient had large amount of bright red bleeding f rom the ileostomy site. Examination revealed exposed vessel which was actively pulsatile bleeding. DESCRIPTION OF PROCEDURE: Verbal informed consent obtained from the patient and family at bedside. Ostomy appliance been removed. There is bleeding at 9:00 of the ileostomy. Using 2-0 Vicryl suture, I applied a [id number] stitches to the site to achieve ready hemostasis. The patient tolerated procedure without any apparent complication and remains hemodynamically stable following completion of the procedure. An ostomy appliance was replaced.
[2017-07-18] MEDS ORDERED: Morphine 4 MG/ML Carpuject SLOW IVP PRN (10:14)
[2017-07-18 10:43] LABS: Hemoglobin 7.9 g/dL (12.0-16.0); Platelet Count 52 thou/uL (130-400)
[2017-07-18] MEDS: Famotidine 20 MG TAB PO SCH (10:49)
[2017-07-18] MEDS: OLAPARIB PO SCH (10:49)
[2017-07-18] MEDS ORDERED: Lorazepam 2 MG/ML VIAL SLOW IVP PRN ×2 (11:09→15:14)
[2017-07-18 12:22] VITALS: TEMP 98
--- NOTE | 2017-07-19 03:36 | DIS ---
DATE OF ADMISSION: 07/16/2017 DATE OF EXPIRATION: 07/18/2017 FINAL DIAGNOSES: 1. Sepsis with septic shock, organism not identified. 2. Question of left-sided pneumonia, organism not identified. 3. Severe hypotension, unresponsive to pressor agents. 4. Acute kidney injury. 5. Chronic kidney disease stage 3. 6. Metastatic ovarian cancer, end-stage. 7. Hyponatremia. 8. Hypokalemia. 9. Ileostomy hemorrhage, controlled with primary suture placement. 10. Thrombocytopenia secondary to chemotherapy. 11. Acute blood loss anemia secondary to ileostomy hemorrhage. 12. Lactic acidosis. 13. Transaminitis with hyperbilirubinemia. CONSULTATIONS: Dr. Larry with General Surgery Service. Dr. Kidd with Pulmonology, Critical Care Service. Dr. Gama with Medical Oncology Service. PERTINENT LABS AND X-RAY FINDINGS: Sodium ranged between 132-138, potassium ranged between 3.3-3.5, creatinine ranged between 2.34-2.83 with estimated GFR ranging between 17-21. Lactic acid level rang ed between 3.9-5.2, total bilirubin ranged between 13.2-14.5, AST ranged between 156-280. ALT ranged between 30-45, alkaline phosphatase ranged between 908-1050, serum cortisol level 14.9. CBC showed a white blood cell count ranging between 21.5-27.2, hemoglobin ranged between 7.9-12.6, platelet coun t ranged between 51-76, blood cultures x2 dated 07/15/2017 showed no growth at 48 hours. Urine cultu re dated 07/15/2017 showed no growth at 36 hours. Influenza AB on 07/15/2017, negative. Pleural flu id culture dated 07/16/2017 showed no growth at 48 hours. AFB, pleural fluid culture pending. Kelly ble chest x-ray dated 07/15/2017 showed large right pleural effusion. Portable chest x-ray dated showed mild reduction in size of right pleural effusion. HOSPITAL COURSE: Patient was admitted to the critical care unit after initially presenting with regla re hypotension requiring IV Levophed and intravenous fluids and suspected sepsis. The patient was in itially placed on broad spectrum IV antibiotic therapy with vancomycin, meropenem with rodriguez cultures s ubmitted. The patient required titrating doses of Levophed for maintenance of blood pressure with sy stolics in the 80s-90s range. The patient was evaluated by the critical care service and medical onc ology with recommendations for aggressive supportive measures. Patient with multiple metabolic abnor malities and likely end-stage metastatic ovarian cancer. Patient received aggressive supportive misti tment; however, continued to clinically decline. The patient underwent right thoracentesis for large right pleural effusion with minimal improvement in oxygenation and vital signs. No specific identif ied organism per culture results as stated previously; however, patient continued on broad spectrum a ntibiotic therapy due to presentation consistent with sepsis picture. The patient also developed com plications related to ileostomy bleeding with acute blood loss noted at the skin interface with ileos mariah, requiring surgical intervention and placement of [id number] sutures to control hemorrhage. The patient was noted with acute blood loss anemia; however, after discussing with the family, no s pecific desire for transfusion was relayed to the medical team and patient was converted to comfort m easures and do not resuscitate status. Patient and family met with hospice services and was in the p rocess of transferring to inpatient hospice when patient was taken off Levophed, at which point, the patient at 1710 on 07/18/2017 with family present at the bedside. Decedent affairs were note d and the patient was pronounced.
== END 2017-07-18 17:50 | disposition expired | DRG 853 ==
LOC: ERS 22:23 → IMCU/EMU 07-16 01:04 → CCU 07-16 08:14
PROVIDERS: ADMIT Internal Medicine; ATTEND Internal Medicine
PROC: 0W993ZX Drainage of Right Pleural Cavity, Percutaneous Approach, Diagnostic (ICD-10-PCS; 2017-07-16)
PROC: 0W3F3ZZ Control Bleeding in Abdominal Wall, Percutaneous Approach (ICD-10-PCS; principal; 2017-07-18)
DX: A40.3 Sepsis due to Streptococcus pneumoniae (principal); E43 Unspecified severe protein-calorie malnutrition; R65.21 Severe sepsis with septic shock; N17.9 Acute kidney failure, unspecified; Q44.3 Congenital stenosis and stricture of bile ducts; J18.9 Pneumonia, unspecified organism; J91.0 Malignant pleural effusion; C78.7 Secondary malignant neoplasm of liver and intrahepatic bile duct; E87.2 Acidosis; C56.9 Malignant neoplasm of unspecified ovary; K50.90 Crohn's disease, unspecified, without complications; E87.1 Hypo-osmolality and hyponatremia; K94.11 Enterostomy hemorrhage; K92.1 Melena; D62 Acute posthemorrhagic anemia; E27.40 Unspecified adrenocortical insufficiency; E83.42 Hypomagnesemia; Z90.12 Acquired absence of left breast and nipple; Z88.1 Allergy status to other antibiotic agents; Z91.041 Radiographic dye allergy status; Z68.29 Body mass index [BMI] 29.0-29.9, adult; E87.6 Hypokalemia; Z93.2 Ileostomy status; Z66 Do not resuscitate; R31.9 Hematuria, unspecified; R62.7 Adult failure to thrive; N18.3 Chronic kidney disease, stage 3 (moderate); D69.59 Other secondary thrombocytopenia; T45.1X5A Adverse effect of antineoplastic and immunosuppressive drugs, initial encounter; R74.0 Nonspecific elevation of levels of transaminase and lactic acid dehydrogenase [LDH]; Z85.3 Personal history of malignant neoplasm of breast; Z92.21 Personal history of antineoplastic chemotherapy; E86.0 Dehydration; Z95.828 Presence of other vascular implants and grafts; Z51.5 Encounter for palliative care
CPT/HCPCS: 32554; 36415; 51701; 71045; 80048; 80053; 80202; 81003; 81015; 82150; 82533; 82945; 83605; 83615; 83690; 83735; 84100; 84157; 84478; 85025; 85060; 87040; 87070; 87086; 87116; 87205; 87206; 87804; 88112; 88305; 89051; 96361; 96365; 96367; A4216; A4353; J1642; J1720; J2060; J2185; J2270; J3370; J7050; P9047